=== PATIENT | female | born 1985 | race African-American/Black ===

== ENCOUNTER 2017-02-25 21:28 | Emergency (ER) | payer OTHER ==
[2017-02-25 20:44] LABS: BASOPHIL# 0.1 X10e3 (0-0.3); BASOPHIL% 1.1 % (0-2.5); EOSINOPHIL# 0.1 X10e3 (0-0.7); HEMATOCRIT 31.8 % (35.0-45.0); HEMOGLOBIN 10.3 gm/dL (12.0-16.0); LYMPHOCYTE# 1.3 X10e3 (1.0-3.5); LYMPHOCYTE% 17.4 % (17.0-45.0); MEAN CELL VOLUME 79.8 FL (83-96); MEAN CORPUSCULAR HEMOGLOBIN 25.9 PG (28-34); MEAN CORPUSCULAR HGB CONC 32.4 g/dL (30-36); MEAN PLATELET VOLUME 9.1 FL (6.5-11.5); NEUTROPHIL# 4.9 X10e3 (1.5-7.1); NEUTROPHIL% 67.5 % (40-75); PLATELET COUNT 412 X10e3 (140-420); RED BLOOD COUNT 3.98 X10e (3.90-5.30); RED CELL DISTRIBUTION WIDTH 14.7 % (11.0-15.5); WHITE BLOOD COUNT 7.3 X10e3 (4.0-10.5)
[2017-02-25 20:48] LABS: DIFF IND NO
[2017-02-25 20:53] LABS: URINE SOURCE CLEAN CATCH
[2017-02-25 20:54] LABS: ALBUMIN SERUM 4.7 g/dL (3.5-5.0); ALKALINE PHOSPHATASE 39 U/L (32-92); ALT (SGPT) 15 U/L (10-40); AST (SGOT) 32 U/L (10-42); BILIRUBIN,TOTAL 0.3 mg/dL (0.2-2.0); BLOOD UREA NITROGEN 19 mg/dL (9-23); BUN/CREATININE RATIO 13.57; CALCIUM SERUM 9.6 mg/dL (8.4-10.2); CARBON DIOXIDE 25 mmol/L (22-31); CHLORIDE 102 mmol/L (100-111); CREATININE SERUM 1.4 mg/dL (0.6-1.4); GLOM FILT RATE Estimated 58.3 mL/min (>60); GLUCOSE FASTING 100 mg/dL (70-110); LIPASE 12 U/L (22-51); POTASSIUM 3.1 mmol/L (3.5-5.1); PROTEIN TOTAL SERUM 8.2 g/dL (6.0-8.3); SODIUM 139 mmol/L (135-145)
[2017-02-25 20:57] LABS: BILIRUBIN, DIRECT <0.1 mg/dL (0.0-0.2); BILIRUBIN,INDIRECT 0.2 mg/dL (0.0-0.9)
[2017-02-25 21:02] LABS: URINE APPEARANCE CLOUDY; URINE BILIRUBIN NEG (NEG); URINE BLOOD NEG (NEG); URINE COLOR YELLOW; URINE GLUCOSE NEG (NEG); URINE KETONE 2+ (NEG); URINE LEUKOCYTE ESTERASE 1+ (NEG); URINE NITRATE NEG (NEG); URINE PROTEIN NEG (NEG); URINE UROBILINOGEN 0.2 MG/DL (NEG)
[2017-02-25 21:06] LABS: CULTURE INDICATED? YES; URBCS1 AUWI 0-2 /[HPF] (0-2); URINE BACTERIA AUWI 1+ (NEGATIVE)
[2017-02-25 21:17] LABS: URINE SQUAMOUS EPITHELIAL CELL MODERATE /[HPF]
[2017-02-25 21:18] LABS: U HYALINE CASTS AUWI 0-2 /[LPF]
[~2017-02-25 21:28] MED LIST: DEPO-PROVER150 MG/ML INJ; GABAPENTIN300 M2 PO; KLONOPIN0.5 MG PO; MOBIC; MOBIC15 MG PO; NORCO 10/3251 TAB PO
[2017-02-25 22:18] LABS: INFLUENZA A NEG (NEG); INFLUENZA B NEG (NEG)
== END 2017-02-25 22:45 | disposition home or self-care (01) ==
LOC: CED 21:28
PROVIDERS: Emergency Medicine
DX: N30.00 Acute cystitis without hematuria (principal); B34.9 Viral infection, unspecified; Z90.49 Acquired absence of other specified parts of digestive tract
CPT/HCPCS: 36415; 80048; 80076; 81003; 83690; 84703; 85025; 87086; 87804; 96361; 96374; 96375; 99284; J1885; J2550